=== PATIENT | female | born 1970 | race Two or more races ===

== ENCOUNTER 2019-09-30 20:07 | Inpatient (IN) | payer MEDICAID ==
[~2019-09-30] VITALS: Ht 153.7 cm; Wt 110.7 kg
[2019-09-30 23:30] VITALS: BP 139/78
[2019-09-30] MEDS ORDERED: ACETAMINOPHEN 650 MG/SUPP.RECT RC PRN (23:30)
[2019-09-30] MEDS ORDERED: ONDANSETRON HCL/PF 4 MG/2 ML VIAL IVP PRN (23:30)
[2019-09-30] MEDS ORDERED: Z GUARD REMEDY 2 OZ OINT TP PRN (23:30)
[2019-09-30] MEDS ORDERED: PIPERACILLIN /TAZOBACTAM 3.375 G in IV D5W 50 ML IV SCH (23:30)
[2019-09-30] MEDS ORDERED: LORAZEPAM INJ 2 MG/ML VIAL IV PRN (23:30)
[2019-09-30] MEDS: HYDROMORPHONE INJ 2 MG/ML DISP.SYRIN IV PRN (23:48)
[2019-09-30] MEDS ORDERED: PIPERACILLIN /TAZOBACTAM 3.375 G VIAL IV ONE (23:49)
[2019-09-30] MEDS: ZOSYN IVPB 3.375 G in IV D5W 50ml IV SCH (23:53)
[2019-10-01] MEDS: IV D5/ 0.9% NACL 1,000 ML IV PRN ×2 (01:04→18:20)
--- NOTE | 2019-10-01 06:00 | NUR ---
MS RN CLOSING NOTES: PATIENT IN BED, AWAKE, A/O X4. NO SOB NOTED. CALL LIGHT WITHIN REACH. BED IN LOWEST AND LOCKED POSITION. NPO.
[2019-10-01] MEDS: ZOSYN IVPB 3.375 G in IV D5W 50ml IV SCH (06:28)
[2019-10-01] MEDS ORDERED: diphenhydrAMINE HCL 50 MG/ML VIAL IV PRN (06:30)
[2019-10-01 06:50] LABS: BASOPHILS % (AUTO) 0.6 % (0.0-2.0); EOSINOPHILS % (AUTO) 3.1 % (0.0-6.0); HEMATOCRIT 34 % (33-45); HEMOGLOBIN 10.7 g/dL (11.5-14.8); LYMPHOCYTES # (AUTO) 1.5 /CMM (0.8-4.8); LYMPHOCYTES % (AUTO) 21.4 % (20.0-44.0); MEAN CORPUSCULAR HGB CONC 32 g/dl (31.0-36.0); MEAN CORPUSCULAR VOLUME 85 fL (82-100); MONOCYTES # (AUTO) 0.6 /CMM (0.1-1.30); MONOCYTES % (AUTO) 9.2 % (2.0-12.0); NEUTROPHILS # (AUTO) 4.5 /CMM (1.8-8.9); NEUTROPHILS % (AUTO) 65.7 % (43.0-81.0); PLATELET COUNT (AUTO) 363 /CMM (150-450); RED BLOOD CELL COUNT(AUTO) 3.93 MIL/uL (4.0-5.2); WHITE BLOOD COUNT (AUTO) 6.9 K/uL (4.3-11.0)
[2019-10-01] MEDS: HYDROMORPHONE INJ 2 MG/ML DISP.SYRIN IV PRN (07:12)
[2019-10-01 07:20] LABS: CREATININE 0.6 mg/dL (0.6-1.3); PHOSPHORUS 4.1 mg/dL (2.5-4.9)
--- NOTE | 2019-10-01 07:30 | NUR ---
MS/RN OPENING NOTES Received patient in bed, A&O x 4. Patient complaints of pain and discomfort in the abdomen, but was given dilaudid by nightshift nurse before change of shift. Patient states she feels more comfortable right now. Breathing even and non-labored on RA, no SOB noted. No cardiac distress noted. IV access noted on R AC #20 gauge, patent and intact, and running D5NS @ 75mls/hr. No s/s of infection, infiltration, or bleeding on site. Patient is ambulatory, but instructed to use call light if in need of assistance getting up. Fall precautions maintained. Will continue to monitor patient for any changes of condition.
[2019-10-01] MEDS ORDERED: FERR325T6 PO (07:41)
[2019-10-01] MEDS ORDERED: MULT-24 PO (07:41)
[2019-10-01] MEDS ORDERED: [UNRECOGNIZED DRUG - CODE] PO (07:41)
[2019-10-01] MEDS ORDERED: MAGN400T26 PO (07:41)
[2019-10-01] MEDS ORDERED: HYDR12.55 PO (07:41)
[2019-10-01 07:43] LABS: THYROID STIMULATING HORMONE 0.394 uIU/mL (0.358-3.74)
[2019-10-01 08:00] VITALS: BP 135/72
[2019-10-01] MEDS: PANTOPRAZOLE 40 MG VIAL IV SCH (08:15)
[2019-10-01] MEDS: ENOXAPARIN SODIUM 40 MG/0.4 ML DISP.SYRIN SQ SCH (12:15)
[2019-10-01] MEDS: PIPERACILLIN /TAZOBACTAM 3.375 G in IV D5W 100 ML IV SCH ×2 (12:19→20:33)
[2019-10-01] MEDS: HYDROCODONE/APAP 5/325MG 1 EACH TABLET PO PRN ×3 (12:51→21:52)
[2019-10-01 16:00] VITALS: BP 137/72
[2019-10-01 16:01] LABS: APPEARANCE,URINE CLEAR (CLEAR); BILIRUBIN,URINE NEGATIVE (NEGATIVE); BLOOD, URINE NEGATIVE Ery/uL (NEGATIVE); COLOR,URINE YELLOW (YELLOW); KETONES,URINE NEGATIVE (NEGATIVE); LEUKOCYTE ESTERASE ,URINE NEGATIVE (NEGATIVE); NITRITE, URINE NEGATIVE (NEGATIVE); PROTEIN,URINE NEGATIVE (NEGATIVE); UGLUCOSE NEGATIVE (NEGATIVE); UROBILINOGEN,URINE 0.2 EU/dL (0.2)
--- NOTE | 2019-10-01 18:30 | NUR ---
MS/RN CLOSING NOTES Patient resting in bed, A&O x 4. Patient complaints of pain and discomfort in the abdomen, offered norco, but refuses to take some this time. Educated patient the risks and benefits and nonpharmacological methods of pain relief (deep breathing exercises). Breathing even and non-labored on RA. No respiratory or cardiac distress noted. IV access noted on R AC #20 gauge, patent and intact, and running D5NS @ 75mls/hr. No s/s of infection, infiltration, or bleeding on site. Patient is ambulatory, but instructed to use call light if in need of assistance getting up. Sensation from all peripheral extremities remained intact. Fall precautions maintained. Will endorse to police shift commander nurse.
--- NOTE | 2019-10-01 19:05 | NUR ---
MS RN OPENING NOTES: RECEIVED PATIENT IN BED, AWAKE A/O X4. NO SOB NOTED. NO COMPLAIN OF PAIN. CALL LIGHT WITHIN REACH. BED IN LOWEST AND LOCKED POSITION. AMBULATORY. ON CLEAR LIQUIDS, TOLERATING.
[2019-10-01 20:00] VITALS: BP 159/95
[2019-10-01 20:55] VITALS: BP 159/95
[2019-10-02] MEDS: PIPERACILLIN /TAZOBACTAM 3.375 G in IV D5W 100 ML IV SCH ×2 (03:38→12:25)
[2019-10-02] MEDS: LEVOTHYROXINE SODIUM 100 MCG TABLET PO SCH (06:06)
[2019-10-02 06:22] LABS: BASOPHILS # (AUTO) 0.1 /CMM (0.0-0.2); BASOPHILS % (AUTO) 1.2 % (0.0-2.0); HEMATOCRIT 34 % (33-45); LYMPHOCYTES # (AUTO) 1.8 /CMM (0.8-4.8); LYMPHOCYTES % (AUTO) 33.6 % (20.0-44.0); MEAN CORPUSCULAR HGB CONC 32 g/dl (31.0-36.0); MEAN CORPUSCULAR VOLUME 85 fL (82-100); MONOCYTES # (AUTO) 0.6 /CMM (0.1-1.30); MONOCYTES % (AUTO) 11.8 % (2.0-12.0); NEUTROPHILS # (AUTO) 2.5 /CMM (1.8-8.9); NEUTROPHILS % (AUTO) 47.4 % (43.0-81.0); PLATELET COUNT (AUTO) 341 /CMM (150-450); RED BLOOD CELL COUNT(AUTO) 4.05 MIL/uL (4.0-5.2); WHITE BLOOD COUNT (AUTO) 5.3 K/uL (4.3-11.0)
--- NOTE | 2019-10-02 06:30 | NUR ---
MS RN CLOSING NOTES: PATIENT IN BED, AWAKE A/O X4. NO SOB NOTED. NOT IN PAIN. CALL LIGHT WITHIN REACH. BED IN LOWEST AND LOCKED POSITION. AMBULATORY.
[2019-10-02 06:36] LABS: CALCIUM, SERUM 8.3 mg/dL (8.5-10.1); CREATININE 0.6 mg/dL (0.6-1.3); MAGNESIUM 2.1 mg/dL (1.8-2.4); PHOSPHORUS 3.3 mg/dL (2.5-4.9); POTASSIUM 4.1 mmol/L (3.5-5.1)
--- NOTE | 2019-10-02 07:45 | NUR ---
RN OPENING NOTE Patient is resting in bed, A/O x4 showing no signs of acute distress or SOB, stable on RA. IV line is clean and intact flushing well. Patient is ambulatory with BRP, independent with care. Patient has no complaints of pain at this time. Bed is in lowest position, side rails x3 in upright position, fall and safety precautions enforced. Will continue with plan of care.
[2019-10-02] MEDS: PANTOPRAZOLE 40 MG VIAL IV SCH (08:41)
[2019-10-02 09:45] VITALS: BP 140/78
--- NOTE | 2019-10-02 10:42 | NUR ---
RN NOTE Per N.P. ok for patient to start on regular diet.
[2019-10-02] MEDS: HYDROCODONE/APAP 5/325MG 1 EACH TABLET PO PRN (11:48)
[2019-10-02] MEDS: ENOXAPARIN SODIUM 40 MG/0.4 ML DISP.SYRIN SQ SCH (12:27)
[2019-10-02] MEDS ORDERED: MORPHINE SULFATE INJ 2 MG/ML DISP.SYRIN IV ONE (14:00)
--- NOTE | 2019-10-02 14:03 | NUR ---
RN NOTE Patient is C/O of increased pain unresolved with norco. Notified N.P. and received telephone order for 2mg IV morphine ONE TIME. Orders repeated back and will carry out.
[2019-10-02 17:56] VITALS: BP 138/79
--- NOTE | 2019-10-02 18:45 | NUR ---
RN CLOSING NOTE Patient is resting in bed, A/O x4 showing no signs of acute distress or SOB, stable on RA. New IV line inserted and is clean and intact flushing well. Patient is ambulatory with BRP, independent with care. All patient needs met, all due medications given, patient kept clean and dry throughotu shift. Bed is in lowest position, side rails x3 in upright position, fall and safety precautions enforced. Will endorse to corporate concierge.
--- NOTE | 2019-10-02 19:00 | NUR ---
MS/RN OPENING NOTES: RECEIVED PATIENT RESTING IN BED, A/O X4. VERBALLY RESPONSIVE AND ABLE TO MAKE NEEDS KNOWN. NO SIGNS OF ACUTE DISTRESS. NO SOB NOTED, STABLE ON RA SATURATING 96% AND ABOVE. IV LINE ON THE LEFT HAND INTACT PATENT AND FLUSHING WELL WITH D5NS @75MLS/HR. PATIENT IS AMBULATORY WITH BRP, INDEPENDENT WITH CARE. SAFETY MEASURES IN PLACE. BED IS IN LOWEST POSITION, SIDE RAILS X3 IN UPRIGHT POSITION, FALL AND SAFETY PRECAUTIONS ENFORCED. WILL CONTINUE TO MONITOR ACCORDINGLY.
[2019-10-02 20:00] VITALS: BP 142/88
[2019-10-02] MEDS: METRONIDAZOLE 500 MG TABLET PO SCH (21:55)
[2019-10-02] MEDS: CIPROFLOXACIN HCL 500 MG TABLET PO SCH (21:55)
[2019-10-02] MEDS: IV D5/ 0.9% NACL 1,000 ML IV PRN (23:41)
--- NOTE | 2019-10-03 01:28 | NUR ---
MS/RN NOTES: PT COMPLAINED OF FEELING BLOATED AND CONSTIPATED. STATING "I HAVEN'T POOPED IN A COUPLE DAYS. CAN YOU GIVE ME A STOOL SOFTENER OR A LAXATIVE". GAVE PATIENT PRUNE JUICE FOR NOW. WILL CONTINUE MONITORING AND WILL REASSESS.
--- NOTE | 2019-10-03 01:36 | NUR ---
MS/RN NOTES: PATIENT SUCCESSFULLY HAD BOWEL MOVEMENT 2X. SOFT AND BROWN.
[2019-10-03] MEDS: METRONIDAZOLE 500 MG TABLET PO SCH ×3 (05:24→20:11)
--- NOTE | 2019-10-03 06:38 | NUR ---
MS/RN CLOSING NOTES: PATIENT REMAINS A/O X4. VERBALLY RESPONSIVE AND ABLE TO MAKE NEEDS KNOWN. RESTING COMFORTABLY IN BED. REMAINS STABLE. NO COMPLAINS OF PAIN ALL THROUGHOUT THE SHIFT. IV LINE ON THE LEFT HAND, INTACT PATENT AND RUNNING D5NS @75MLS/HR. SAFETY MEASURES MAINTAINED. BED IS IN LOWEST POSITION, SIDE RAILS X3 IN UPRIGHT POSITION, FALL AND SAFETY PRECAUTIONS ENFORCED. BED ALARM ON. ALL DUE MEDS GIVEN ORDERED. ALL NURSING NEEDS MET AND RENDERED. WILL ENDORSE TO DAY SHIFT FOR NAYELI.
[2019-10-03] MEDS: LEVOTHYROXINE SODIUM 100 MCG TABLET PO SCH (06:59)
--- NOTE | 2019-10-03 07:40 | NUR ---
RN NOTES: RECEIVED PATIENT IN BED RESTING COMFORTABLY IN MODERATE HIGH BACK REST. A/O X4. VERBALLY RESPONSIVE AND ABLE TO MAKE NEEDS KNOWN. IV LINE ON THE LEFT HAND, INTACT PATENT AND RUNNING D5NS @75MLS/HR. SAFETY MEASURES MAINTAINED. BED IS IN LOWEST POSITION, SIDE RAILS X3 IN UPRIGHT POSITION, FALL AND SAFETY PRECAUTIONS ENFORCED. BED ALARM ON. WILL CONTINUE TO MONITOR.
[2019-10-03 08:00] VITALS: BP 145/86
[2019-10-03] MEDS: PANTOPRAZOLE 40 MG VIAL IV SCH (08:07)
[2019-10-03] MEDS: CIPROFLOXACIN HCL 500 MG TABLET PO SCH ×2 (08:08→20:11)
[2019-10-03] MEDS: HYDROCODONE/APAP 5/325MG 1 EACH TABLET PO PRN ×2 (08:15→22:06)
--- NOTE | 2019-10-03 11:29 | NUR ---
RN NOTES RECEIVED A CALL FROM JEAN PIERRE FRANCO TO ORDER CT ABDOMEN PELVIS- IR DRAINAGE OF INTRA ABDOMINAL FLUIDS COLLECTION ON RIGHT PELVIS. ORDER MADE AND CARRIED OUT.
[2019-10-03] MEDS: ENOXAPARIN SODIUM 40 MG/0.4 ML DISP.SYRIN SQ SCH (12:00)
--- NOTE | 2019-10-03 12:08 | NUR ---
RN NOTES HOLD LOVENOX DUE TO PROCEDURE. WILL CONTINUE TO MONITOR.
[2019-10-03] MEDS: IV D5/ 0.9% NACL 1,000 ML IV PRN (14:19)
[2019-10-03 16:00] VITALS: BP 147/75
--- NOTE | 2019-10-03 18:32 | NUR ---
RN NOTES: PATIENT IN BED RESTING COMFORTABLY IN MODERATE HIGH BACK REST. A/O X4. VERBALLY RESPONSIVE AND ABLE TO MAKE NEEDS KNOWN. IV LINE ON THE LEFT HAND, INTACT PATENT AND RUNNING D5NS @75MLS/HR. SAFETY MEASURES MAINTAINED. BED IS IN LOWEST POSITION, SIDE RAILS X3 IN UPRIGHT POSITION, FALL AND SAFETY PRECAUTIONS ENFORCED. BED ALARM ON. WILL ENDORSE TO FIELD NATURALIST NURSE FOR NAYELI.
--- NOTE | 2019-10-03 19:10 | NUR ---
MS RN OPENING NOTES PATIENT AWAKE IN BED. A/OX4. ON RA. DENIES SOB; BREATHING IS EVEN AND UNLABORED. PATIENT C/O SLIGHT LOWER ABDOMINAL PAIN RATED 5/10 HOWEVER IS REFUSING PAIN MEDICATIONS AT THIS TIME; PATIENT GIVEN ICE BAG FOR RELIEF. IV PRESENT ON LEFT HAND INTACT & PATENT WITH D5NS RUNNING AT 75 ML/HR. SAFETY MEASURES IN PLACE AND PATIENT'S NEEDS MET. BED LOCKED, HOB ELEVATED, SIDE RAILS X2, CALL LIGHT WITHIN REACH. WILL CONTINUE TO MONITOR.
[2019-10-03 20:00] VITALS: BP 148/80
[2019-10-04] MEDS: IV D5/ 0.9% NACL 1,000 ML IV PRN (03:36)
[2019-10-04] MEDS: METRONIDAZOLE 500 MG TABLET PO SCH ×2 (05:09→12:29)
[2019-10-04] MEDS: LEVOTHYROXINE SODIUM 100 MCG TABLET PO SCH (06:00)
[2019-10-04 07:05] LABS: BASOPHILS % (AUTO) 0.6 % (0.0-2.0); EOSINOPHILS % (AUTO) 4.6 % (0.0-6.0); HEMATOCRIT 33 % (33-45); HEMOGLOBIN 10.6 g/dL (11.5-14.8); LYMPHOCYTES # (AUTO) 1.7 /CMM (0.8-4.8); LYMPHOCYTES % (AUTO) 25.4 % (20.0-44.0); MEAN CORPUSCULAR HGB CONC 32 g/dl (31.0-36.0); MEAN CORPUSCULAR VOLUME 85 fL (82-100); MONOCYTES # (AUTO) 0.7 /CMM (0.1-1.30); NEUTROPHILS # (AUTO) 3.9 /CMM (1.8-8.9); NEUTROPHILS % (AUTO) 59.4 % (43.0-81.0); PLATELET COUNT (AUTO) 337 /CMM (150-450); WHITE BLOOD COUNT (AUTO) 6.5 K/uL (4.3-11.0)
--- NOTE | 2019-10-04 07:36 | NUR ---
MS RN CLOSING NOTES PATIENT AWAKE IN BED. A/OX4. ON RA. PATIENT DENIES SOB OR PAIN AT THIS TIME. IV PRESENT ON LEFT HAND INTACT & PATENT WITH D5NS RUNNING AT 75 ML/HR. SAFETY MEASURES IN PLACE AND PATIENT'S NEEDS MET. BED LOCKED, HOB ELEVATED, SIDE RAILS X2, CALL LIGHT WITHIN REACH. ENDORSED TO DAY SHIFT RN PLAN OF CARE.
[2019-10-04 07:38] LABS: CALCIUM, SERUM 8.2 mg/dL (8.5-10.1); CREATININE 0.5 mg/dL (0.6-1.3); MAGNESIUM 1.9 mg/dL (1.8-2.4); PHOSPHORUS 3.4 mg/dL (2.5-4.9); POTASSIUM 3.9 mmol/L (3.5-5.1)
--- NOTE | 2019-10-04 07:54 | NUR ---
MS RN NOTES RECEIVED PATIENT IN BED ALERT AND AWAKE ORIENTED X4. HOB ELEVATED. PATIENT DENIES ANY C/O ABD PAIN NOR ANY S/S OF PAIN NOR DISCOMFORT. LEFT HAND # 18 INTACT AND PATENT INFUSING D5 NS AT 75ML/HR GA WELL. BED IN LOWEST POSITION, LOCKED. BED LAARM ON. CALL LIGHT WITHIN REACH. ABLE TO VERBALIZE NEEDS.
[2019-10-04 08:00] VITALS: BP_SYST 126; BP_SYST 145; BP_DIAS 48; BP_DIAS 55
[2019-10-04] MEDS: PANTOPRAZOLE 40 MG VIAL IV SCH (08:35)
[2019-10-04] MEDS: CIPROFLOXACIN HCL 500 MG TABLET PO SCH (08:36)
--- NOTE | 2019-10-04 08:48 | NUR ---
Patients prior CT scan revealing a right pelvic fluid collection however radiologist were unable to identify a drainable fluid collection in patients CT Abdomen Pelvis with Contrast exam at 10/03/19 1207
[2019-10-04] MEDS ORDERED: PANTOPRAZOLE 40 MG TABLET.DR PO SCH (09:00)
[2019-10-04] MEDS ORDERED: CIPR500T5 PO (12:01)
[2019-10-04] MEDS ORDERED: METR500T PO (12:01)
[2019-10-04] MEDS: ENOXAPARIN SODIUM 40 MG/0.4 ML DISP.SYRIN SQ SCH (12:30)
--- NOTE | 2019-10-04 13:07 | NUR ---
MS RN NOTES ALERT AND AWAKE ORIENTED X4. PATIENT FOR DISCHARGE. DISCHARGE INSTRUCTIONS, EDUCATION AND PACKET GIVEN TO PATIENT INCLUDING CD. PATIENT HAS NO IV ACCESS. ALL BELONGINGS ACCOUNTED FOR. AMBULATORY WITH STEADY GAIT. DENIES ANY C/O ABD PAIN NOR S/S OF PAIN NOR DISCOMFORT. ABLE TO VERBALIZE NEEDS. PATIENT PICKED UP BY DAUGHTER, LEFT IN STABLE CONDITION.
== END 2019-10-04 13:10 | disposition home or self-care (01) | DRG 249 ==
LOC: MED 22:55
PROVIDERS: ADMIT Nurse Practitioner Acute Care; ATTEND Registered Nurse
DX: A08.4 Viral intestinal infection, unspecified (principal); E03.9 Hypothyroidism, unspecified; F41.9 Anxiety disorder, unspecified; Z90.49 Acquired absence of other specified parts of digestive tract; E66.9 Obesity, unspecified; Z68.42 Body mass index [BMI] 45.0-49.9, adult; N80.9 Endometriosis, unspecified; N73.6 Female pelvic peritoneal adhesions (postinfective); D25.2 Subserosal leiomyoma of uterus
CPT/HCPCS: 36415; 80048-TC; 80061-TC; 81000-TC; 82378; 83690-TC; 83735-TC; 84100-TC; 84443-TC; 84703-TC; 85025-TC; 86301; 87081-TC; C9113; G0378; J1170; J1650; J2270; J2543; J3490; J7042; J7060